=== PATIENT | female | born 1965 | race Caucasian/White ===

== ENCOUNTER 2017-07-20 06:08 | Day surgery (SDC) | payer OTHER ==
[2017-07-20] MEDS ORDERED: FENTAnyl 50 MCG/ML VIAL (08:11)
[2017-07-20] MEDS ORDERED: MIDAZOLAM 1 MG/ML 2 ML INJ ×2 (08:11)
== END 2017-07-20 16:32 | disposition home or self-care (01) ==
LOC: GIL 06:08
DX: Z12.11 Encounter for screening for malignant neoplasm of colon (principal); K64.4 Residual hemorrhoidal skin tags
CPT/HCPCS: 45378